=== PATIENT | female | born 1950 | race Caucasian/White ===

== ENCOUNTER 2017-06-07 08:09 | Outpatient (CLI) | payer OTHER, MEDICARE ==
[2017-06-07 11:02] LABS: Hematocrit 42.8 % (36.0-47.0); Mean Platelet Volume 7.8 fL (7.4-10.4); Red Blood Cell (RBC) Count 4.21 mill/uL (4.20-5.40); White Blood Cell (WBC) Count 7.7 thou/uL (4.8-10.8)
[2017-06-07 11:03] LABS: Prothrombin Time 12.2 SEC (12.0-14.7)
[2017-06-07 11:15] LABS: Anion Gap 11 mmol/L (10-20); BUN (Urea Nitrogen) 8 mg/dL (9.8-20.1); Calc. Creatinine Clearance 0 mL/min (70-130); Calcium 9.5 mg/dL (7.8-10.44); Carbon Dioxide 29 mmol/L (23-31); Chloride 94 mmol/L (98-107); Estimated GFR-MDRD 84
[2017-06-07 11:30] LABS: Bilirubin Negative (Negative); Blood, Urine Negative (Negative); Glucose, Urine (Dipstick) Negative (Negative); Ketone, Urine Negative (Negative); Nitrite Negative (Negative); Protein, Urine (Dipstick) Negative (Neg-Trace); Urobilinogen 0.2 mg/dL (0.2-1.0)
[2017-06-07 11:34] LABS: Bacteria/HPF None Seen HPF (None Seen); Hyaline Casts/LPF 0-3 HYALINE CAST LPF (0-3 Hyaline); PTT 22.5 SEC (22.9-36.1); RBC/HPF 0-3 HPF (0-3); Squamous Epithelial None Seen HPF (0-3); WBC/HPF None Seen HPF (0-3)
== END 2017-06-07 08:10 | disposition home or self-care (01) ==
LOC: LABBT 08:09
PROVIDERS: ATTEND Orthopaedic Surgery
DX: Z01.818 Encounter for other preprocedural examination (principal); M17.11 Unilateral primary osteoarthritis, right knee; Z88.8 Allergy status to other drugs, medicaments and biological substances
CPT/HCPCS: 80048; 81001; 85027; 85610; 85730; 86850; 86900; 86901; 87081; 87086; 93005; 93010

== ENCOUNTER 2017-06-07 08:45 | Inpatient (IN) | payer OTHER, MEDICARE ==
[2017-06-07 08:30] VITALS: BMI 26.2
--- NOTE | 2017-06-07 14:16 | HP ---
HISTORY OF PRESENT ILLNESS: The patient is a 67-year-old female who has post-traumatic degenerative arthritis of both knees. She had right knee arthroscopy approximately 5 years ago by me and a left k nee arthroscopy done by Dr. Pretty in [place] approximately 6 years ago. She initially has done we ll, but over the past several years, has noticed progressive degenerative arthritis and over the past several months she started having increasing pain in the right knee, which is persisted despite rest , restriction of activities, anti-inflammatory medications and cortisone injection. The pain is now interfering with day-to-day activities including walking, getting dressed and using stairs. PAST MEDICAL AND SURGICAL HISTORY: The patient had a cervical fusion performed several months ago an d it appears to be gradually healing. She has history of a high cholesterol, depression, acid reflux and asthma. CURRENT MEDICATIONS: Include Boniva, Advair, propranolol, duloxetine, lorazepam, hydrochlorothiazide , multivitamins, hydrocodone, aspirin, calcium and multivitamins. ALLERGIES: She has a possible allergy to EPINEPHRINE. FAMILY HISTORY: Otherwise unremarkable. SOCIAL HISTORY: Otherwise unremarkable. REVIEW OF SYSTEMS: Otherwise unremarkable. PHYSICAL EXAMINATION: GENERAL: Reveals a healthy, thin female. HEENT: Unremarkable. NECK: Supple. CHEST: Clear. HEART: Regular rate and rhythm. ABDOMEN: Soft and nontender. PELVIC: Deferred. RECTAL: Deferred. BREAST: Deferred. EXTREMITIES: Pertinent findings of the right knee, there is trace effusion. There is mild valgus. Range of motion is 0 to 125 degrees. There is 1-2+ valgus laxity at 30 degrees of flexion and the kn ee is stable in extension. Neurovascular exam is intact. There is tenderness and crepitus over the lateral joint line. Slight antalgic gait. There is no pain with range of motion of the right hip. LABORATORY AND X-RAY FINDINGS: X-rays of both knees reveal bone on bone collapse laterally of both k nees. The right knee has progressed from previous x-rays of the left knee is about the same. IMPRESSION: Post-traumatic degenerative arthritis, both knees, right symptomatic more than left. PLAN: Right total knee replacement. She may eventually require a staged left total knee replacement . The nature of the surgery, length of recovery and potential complications such as infection, loss of motion, incomplete relief, delayed wound healing, neurovascular injury, thromboembolic phenomenon, possible transfusion and need for revision have been discussed in detail.
== END 2017-06-13 08:30 | disposition home or self-care (01) | DRG 554 ==
LOC: SJJU 06-13 05:30
PROVIDERS: ADMIT Orthopaedic Surgery; ATTEND Orthopaedic Surgery
DX: M17.2 Bilateral post-traumatic osteoarthritis of knee (principal); L97.119 Non-pressure chronic ulcer of right thigh with unspecified severity; Z53.8 Procedure and treatment not carried out for other reasons; F17.210 Nicotine dependence, cigarettes, uncomplicated

== ENCOUNTER 2018-02-09 08:30 | Inpatient (IN) | payer BC, MEDICARE ==
[2018-02-09 09:17] VITALS: BMI 25.7
--- NOTE | 2018-02-16 13:45 | HP ---
HISTORY OF PRESENT ILLNESS: The patient is a 67-year-old female with a long history of progressive t raumatic degenerative arthritis of both knees. She has had previous arthroscopic meniscectomy of bot h knees in the past. She subsequently has developed progressive degenerative changes of both knees, left symptomatic more than right, unresponsive to rest, restriction of activities, anti-inflammatory medications, several injections and use of hydrocodone. The pain is now interfering with day-to-day activities including walking, getting dressed and sleeping. PAST MEDICAL HISTORY: The patient is otherwise in good health. She does have some chronic pain and is [place] Dr. Choudh[place] near [place] is treated with hydrocodone. She also has a history of de pression, asthma, high cholesterol, osteoporosis. CURRENT MEDICATIONS: Include Boniva, Advair, lorazepam, hydrochlorothiazide, multivitamins, hydrocod one, aspirin, albuterol. ALLERGIES: She is allergic to EPINEPHRINE. FAMILY HISTORY/SOCIAL HISTORY/REVIEW OF SYSTEMS: Otherwise unremarkable. PHYSICAL EXAMINATION: GENERAL: Reveals a healthy, thin female. HEENT: Unremarkable. NECK: Supple. CHEST: Clear. HEART: Regular rate and rhythm. ABDOMEN: Soft, nontender. PELVIC/RECTAL/BREAST: Exams are deferred. EXTREMITIES: Pertinent findings related to her knees. There is mild valgus deformity bilaterally. There is tenderness and crepitus over the lateral joint line, left greater than right. No definite e ffusion. Range of motion is 0-135 degrees bilaterally. There is no instability. Neurovascular exam is intact. No pain with range of motion of either hip. Pulses are 2+. Neurovascular exam is intac t. X-RAY FINDINGS: X-rays of both knees reveal bone on bone collapse laterally bilaterally, left slight ly greater than right. IMPRESSION: Post-traumatic degenerative arthritis, both knees, left symptomatic more than right. PLAN: Left total knee replacement. The nature of the surgery, length of recovery, and potential com plications such as infection, loss of motion, incomplete relief, delayed wound healing, neurovascular injury, thromboembolic phenomena, possible transfusion, and need for revision have been discussed in detail. She may ultimately require a staged right total knee replacement.
[2018-02-20] MEDS ORDERED: Ropivacaine 0.2% HCl/PF (40 MG/20 ML VIAL) ONE (06:56)
[2018-02-20] MEDS ORDERED: Ropivacaine 0.5% HCl/PF (150 MG/30 ML VIAL) ONE (06:56)
[2018-02-20] MEDS ORDERED: Tranexamic Acid 1,000 MG/10 ML VIAL ONE ×2 (07:10→12:01)
[2018-02-20] MEDS ORDERED: Sodium Chloride 0.9% 100 ML ONE (07:10)
[2018-02-20] MEDS ORDERED: CEFAZOLIN/Water 2 GM/20 ML SYRINGE ONE (07:10)
[2018-02-20] MEDS ORDERED: Midazolam HCl 2 mg/2 ml Vial ONE ×3 (07:43→09:26)
[2018-02-20] MEDS ORDERED: Fentanyl 100 MCG/2 ML VIAL ONE ×3 (07:43→12:16)
[2018-02-20] MEDS ORDERED: traMADol HCl 50 MG TAB PO PRN ×2 (08:40→13:28)
[2018-02-20] MEDS ORDERED: Zolpidem Tartrate 5 MG TAB PO PRN ×2 (08:40→13:28)
[2018-02-20] MEDS ORDERED: Fentanyl 100 MCG/2 ML VIAL IV PRN (08:42)
[2018-02-20] MEDS ORDERED: PROPOFOL 200 MG/20 ML VIAL ONE (09:25)
[2018-02-20] MEDS ORDERED: Ondansetron PF 4 MG/2 ML Vial ONE (09:25)
[2018-02-20] MEDS ORDERED: Bupivacaine/Epinephrine 0.25% 30 ML VIAL ONE (10:01)
[2018-02-20] MEDS ORDERED: Tranexamic Acid 1,000 MG in Sodium Chloride 0.9% 100 ML IVPB SCH ×2 (12:15→13:28)
--- NOTE | 2018-02-20 12:53 | OP ---
DATE OF PROCEDURE: 02/20/2018 PREOPERATIVE DIAGNOSIS: End-stage tricompartmental osteoarthritis of left knee with degenerative gen u valgum. POSTOPERATIVE DIAGNOSIS: End-stage tricompartmental osteoarthritis of left knee with degenerative ge nu valgum. OPERATIVE PROCEDURE: Cemented cruciate-sparing computer-assisted navigated left total knee arthropla sty. SURGEON: Bayron Cox M.D. MARKET RESEARCH INTERVIEWER: Timi Ram PA-C. ANESTHESIA: General via laryngeal mask airway augmented with indwelling anterior adductor canal bloc k with a single shot sciatic block. COMPONENTS USED: [employer] Triathlon primary cemented cruciate-sparing size 3 femoral comp onent with a primary cemented universal tibial size 2 baseplate with a 9 mm polyethylene fixed bearin g insert, A29 patellar button. FINDINGS: End-stage severe degenerative tricompartmental disease, bone on bone arthrosis, periarticu lar osteophyte formation, large serous effusion, hypertrophic synovium, and changes consistent with d egenerative genu valgum. TOURNIQUET TIME: 67 minutes at 250 mmHg. INPUT: 500 mL crystalloid. OUTPUT: 200 mL of clear yellow urine. ESTIMATED BLOOD LOSS: Less than 100 mL. DRAINS: None. SPECIMENS: None. COMPLICATIONS: None. COUNTS: Correct. INDICATIONS FOR SURGERY: Malgorzata is a 67-year-old white female who has had progressive left knee pa in amplified with standing and walking for the last 5-7 years. She has failed conservative managemen t and elected to proceed with total knee arthroplasty as a definitive treatment of her pain. PROCEDURE IN DETAIL: After informed consent was obtained in the preoperative holding area. The mariann ent was taken to the operative suite where general anesthesia was induced. Once adequate level of ge neral anesthesia was obtained, the patient was positioned and a well-padded tourniquet was placed sanjana und the left proximal thigh. The left lower extremity was then prepped and draped in the usual steri le fashion. Prior to exsanguination, a time out was called and all members of the surgical team agre ed upon site, surgeon, and patient. The extremity was then exsanguinated and the tourniquet was rais ed. A midline longitudinal incision was then made directly over the patella extending two fingerbrea dths above the superior pole of the patella and two fingerbreadths inferior to the inferior patellar pole of the patella. Deeper subcutaneous layers were dissected sharply and local bleeding was contro lled with Bovie electrocautery. A quad tendon longitudinal split was then made sharply and a median parapatellar arthrotomy was carried out both sharp and with Bovie electrocautery, carried down to one fingerbreadth medial to the tibial tubercle. The knee was then placed into flexion and the patella was everted nicely, and a copious fat pad ectomy was performed allowing for greater exposure of the t ibia. The computer-assisted distal femoral fiducial was then placed and pinned firmly, and the dista l femoral cutting guide was pinned firmly into place. The oscillating saw was then used to remove th e appropriate amount of bone. The 4-in-1 cutting block was then placed on the distal femur and the o scillating saw was used to remove the appropriate amount of bone off of the anterior, posterior, and chamfer cuts. After completion of bone cuts, the anterior cruciate ligament was resected sharply and the posterior cruciate ligament retractor was placed and the tibia was subluxed for better exposure. Partial meniscectomies were carried out, and the tibial computer-assisted fiducial was pinned, and the cutting guide was placed. Oscillating saw was then used to remove the bone with Hohmann retracto rs used to take care and protect the collateral ligaments. After the tibial resection was performed, a laminar motorcoach operator was placed in between the freshened bone cuts. The knee placed at 90 degrees and further bilateral meniscectomies were carried out, and the curved osteotome and curettage was used t o remove any excess bone spurs in the posterior compartment. The trial femoral component, tibial bas eplate were placed with the appropriate polyethylene trial insert with an appropriate polyethylene sp acer and patellar button. The knee was taken through full range of motion with flexion and extension from 0-90 degrees and patellar broach squarely in the trochlea without any squinting or subluxation noted. The knee was also stable to varus and valgus stressing at 0, 15, 45, and 90 degrees of flexi on. The drawer was negative. All trial components were then removed and the keel punch was used to p rovide the appropriate defect in the tibia with a mallet. The freshened bone cuts were copiously irr igated with pulsatile lavage of about 1-1/2 liters to remove all excess debris. The freshened bone c uts were then dried and with suction and lap sponge. The knee was placed in flexion and retractors w ere placed to provide access to all bone cuts. Tobramycin impregnated methyl methacrylate cement was then placed on the freshened bone cuts and implants which were malleted firmly into place. Curettag e and Beaumont elevators were used to remove any excess bone cement. The knee was placed into full exte nsion and the patellar button was placed under compression, and the cement was allowed to cure. Once completed, the components were again taken through full range of motion and copious irrigation of th e knee was carried out with another liter of normal saline. All components were inspected fully with full range of motion and varus and valgus stressing. There was no laxity noted and full extension wa s observed clinically. Primary closure was accomplished with #2 interrupted Vicryl stitch of the art hrotomy defect. This was oversewn with a #2 running Quill barbed stitch. The subcutaneous layer was then closed with a running 0 barbed Monocryl stitch and skin closure accomplished with a running sub cuticular 3-0 Monocryl barbed Quill stitch and augmented with cement on the skin. Tourniquet was low ered. Good spontaneous return of distal pulses was noted clinically and a sterile dressing was appli ed to the incision. The procedure was terminated without any complications. The patient was awakene d in the operative suite and taken to the recovery room in stable condition.
--- NOTE | 2018-02-20 13:27 | RAD ---
LEFT KNEE TWO VIEWS: History: Post-operative exam. FINDINGS/IMPRESSION: Recent post-operative change including arthroplasty in good position and alignment. Soft tissue air i s present. POS: [facility]
[2018-02-20] MEDS ORDERED: Ondansetron PF 4 MG/2 ML Vial IVP PRN (13:28)
[2018-02-20] MEDS ORDERED: HYDROcodone/Acetaminophen 10/325 mg Tablet PO PRN ×2 (13:28)
[2018-02-20] MEDS ORDERED: Acetaminophen 325 MG TAB PO PRN (13:28)
[2018-02-20] MEDS ORDERED: Fentanyl 100 MCG/2 ML VIAL SLOW IVP PRN ×2 (13:28)
[2018-02-20] MEDS ORDERED: diphenhydrAMINE 25 MG CAP PO PRN (13:28)
[2018-02-20] MEDS ORDERED: Promethazine HCl 25 MG/ML VIAL SLOW IVP PRN (13:28)
[2018-02-20] MEDS ORDERED: PROVENTIL INHALER 6.7 G (200 INHALATIONS) INH PRN (13:45)
[2018-02-20] MEDS ORDERED: Ketorolac Tromethamine 30 MG/ML VIAL IVP SCH (14:00)
[2018-02-20] MEDS: Ketorolac Tromethamine 30 MG/ML VIAL IVP SCH ×2 (14:22→18:39)
[2018-02-20] MEDS: Sodium Chloride 0.9% 1,000 ML IV SCH (15:14)
[2018-02-20] MEDS: Mometasone/Formoterol 120 PUFF INHALER INH SCH (18:24)
[2018-02-20] MEDS: CEFAZOLIN/Water 2 GM/20 ML SYRINGE SLOW IVP SCH (18:41)
[2018-02-20] MEDS ORDERED: Vancomycin HCl 1 GM in Premix Bag 1 BAG IVPB SCH (19:30)
[2018-02-20] MEDS: Hydrochlorothiazide 25 MG TAB PO SCH (20:07)
[2018-02-20] MEDS: Venlafaxine HCl XR 150 MG CAP PO SCH (20:08)
[2018-02-20] MEDS: Propranolol 10 MG TAB PO SCH (20:09)
[2018-02-20] MEDS: Aspirin 81 mg Enteric Coated Tablet PO SCH (20:09)
[2018-02-20] MEDS: Ondansetron PF 4 MG/2 ML Vial IVP PRN (20:10)
[2018-02-20] MEDS: clonazePAM 1 MG TAB PO PRN (21:13)
[2018-02-21] MEDS: Ketorolac Tromethamine 30 MG/ML VIAL IVP SCH ×4 (00:14→18:15)
[2018-02-21] MEDS: Sodium Chloride 0.9% 1,000 ML IV SCH ×2 (00:16→09:50)
[2018-02-21] MEDS: CEFAZOLIN/Water 2 GM/20 ML SYRINGE SLOW IVP SCH (02:00)
[2018-02-21] MEDS: HYDROcodone/Acetaminophen 10/325 mg Tablet PO PRN ×4 (03:41→23:17)
[2018-02-21 05:50] LABS: Hemoglobin 11.5 g/dL (12.0-16.0); Mean Corpuscular HGB CONC 35.2 g/dL (32.0-36.0); Mean Corpuscular Hemoglobin 34.9 pg (27.0-31.0); Mean Corpuscular Volume 99.1 fL (78.0-98.0); Mean Platelet Volume 7.6 fL (7.4-10.4); Platelet Count 211 thou/uL (130-400); RBC Distribution Width 11.1 % (11.5-14.5); Red Blood Cell (RBC) Count 3.29 mill/uL (4.20-5.40); White Blood Cell (WBC) Count 9.8 thou/uL (4.8-10.8)
[2018-02-21] MEDS: traMADol HCl 50 MG TAB PO PRN (07:26)
--- NOTE | 2018-02-21 08:12 | CON ---
PRIMARY CARE PROVIDER: Dr. Choudhury in [place], [place]. HISTORY OF PRESENT ILLNESS: She was admitted to the hospital by Dr. Cox. She underwent a left tot al knee replacement this morning. She is awake and alert. She has had no chest pain, shortness of b reath or cough. She has had no nausea or vomiting. She has had no fever, sweats or chills. She was able to participate in PT. She has had some left leg pain at the site of her surgery, but she was a ble to get up with a walker and participate. PAST MEDICAL HISTORY: Her chronic medical problems include gastroesophageal reflux disease, asthma, osteoporosis, irritable bowel syndrome, dyslipidemia, insomnia, anxiety, an depression. MEDICATIONS: Her home medicines, Dexilant 60 mg at bedtime, aspirin 81 mg a day, ziprasidone 80 mg p .o. at bedtime, albuterol HFA 2 puffs q.4 hours p.r.n., desvenlafaxine 100 mg at bedtime, benazepril/ hydrochlorothiazide 10/12.5 one tablet at bedtime, clonazepam 1 mg, she takes 30 minutes before her s leeping pill at night, Advair Diskus 250/50 one puff at bedtime, Lipitor 20 mg a day, propranolol 10 mg twice a day, Lunesta 2 mg at bedtime. ALLERGIES: MEPERIDINE drops her blood pressure, EPINEPHRINE makes her shake and makes her heart race . PAST SURGICAL HISTORY: Bilateral knee surgery in the past. SOCIAL HISTORY: , no tobacco in 35 years. Drinks an occasional beer. REVIEW OF SYSTEMS: General: No headaches, dizziness or fainting. Eyes: No double vision, blurred vision, flashing lights. Ear, Nose and Throat: No ear pain or drainage. No nasal bleeding. No tro uble swallowing. Cardiac: No chest pain, orthopnea or paroxysmal nocturnal dyspnea. Respiratory: No cough, wheezing or asthma. Gastrointestinal: No nausea, vomiting, abdominal pain, diarrhea or co nstipation. Genitourinary: No hematuria, dysuria or nocturia. Musculoskeletal: Legs occasionally swells. She had severe pain in her left knee prior to surgery with any ambulation. Psychiatric: In somnia, uses clonazepam plus a sleeping pill, Lunesta to sleep at night. Skin: No bruising, bleedin g or rash. Heme/Lymph: No tender or swollen lymph nodes in axilla, inguinal or cervical area. PHYSICAL EXAMINATION: GENERAL: She is an alert, pleasant, cooperative, oriented lady. VITAL SIGNS: Temperature 97.4, pulse 69, respirations 16, O2 sat 96, blood pressure 132/82. HEAD, EYES, EARS, NOSE AND THROAT: Reveal pupils equal, round, and reactive to light. Extraocular m ovements are intact. Sclerae white. Tympanic membranes clear. Nose clear. Throat is clear. NECK: Supple, without jugular venous distention, adenopathy or thyromegaly. CHEST: Clear to auscultation and percussion. HEART: Regular rate and rhythm. First and second heart sounds are clear. There are no appreciated murmurs or gallops. ABDOMEN: Soft, bowel sounds are normal. There is no hepatosplenomegaly, no mass, no rebound, no bru its. EXTREMITIES: No cyanosis, clubbing or edema. SKIN: She has an incision wrapped on her left knee. PULSES: Carotid, radial, femoral, and dorsalis pedis pulses intact and symmetric. HEME/LYMPH: No tender or swollen lymph nodes in axilla, inguinal or cervical area. NEUROLOGIC: Cranial nerves II-XII are intact. Moves all extremities. LABORATORY AND X-RAY FINDINGS: There is none for this visit. On 02/09/2018, CBC: Hemoglobin 15.0, white count 8.2, platelet count 314,000. INR 0.9. Chemistry: Sodium 130, potassium 4.1, BUN 8, cre atinine 0.62, blood sugar 79. Urine clear. EKG regular sinus rhythm, low voltage QRS, inverted T waves in the anterior leads. ADMITTING DIAGNOSES: Stable, post left total knee replacement, asthma, stable, gastroesophageal refl ux disease, irritable bowel syndrome, dyslipidemia. PLAN: Agree with current management. We will follow with you. Thank you for this consultation.
[2018-02-21] MEDS: Propranolol 10 MG TAB PO SCH ×2 (08:32→21:28)
[2018-02-21] MEDS: Calcium Carbonate + Vit D 1 TAB PO SCH (08:32)
[2018-02-21] MEDS: Aspirin 81 mg Enteric Coated Tablet PO SCH ×2 (08:32→21:25)
[2018-02-21] MEDS: Senokot S 8.6-50 MG TAB PO SCH ×2 (08:33→21:24)
[2018-02-21] MEDS: Atorvastatin Calcium 20 MG TAB PO SCH (08:33)
[2018-02-21] MEDS: Multivitamin W/ Minerals 1 TAB PO SCH (08:33)
[2018-02-21] MEDS: Ferrous Gluconate 324 MG TAB PO SCH ×2 (08:33→21:24)
[2018-02-21] MEDS: Ondansetron PF 4 MG/2 ML Vial IVP PRN (10:16)
[2018-02-21] MEDS: Ropivacaine HCl/PF 250 ML in Premix Bag 1 BAG NERVE BLCK SCH (13:10)
--- NOTE | 2018-02-21 15:09 | PDOC.PN ---
- Subjective Encounter Start Date: 02/21/18 Encounter Start Time: 15:07 Subjective: minimal discomfort, doing well with PT - Objective MAR Reviewed: Yes Vital Signs & Weight: Vital Signs (12 hours) Temp Pulse Resp BP BP Pulse Ox 02/21/18 12:00 98.3 F 81 18 158/82 H 96 02/21/18 08:00 98.2 F 101 H 18 107/71 96 02/21/18 07:24 97.9 F 79 20 95 02/21/18 03:38 97.9 F 79 20 100/68 95 Weight Admit Weight 150 lb Weight 150 lb I&O: 02/20/18 02/21/18 02/22/18 06:59 06:59 06:59 Intake Total 3300 Output Total 2400 Balance 900 Result Diagrams: 02/21/18 04:45 Phys Exam - Physical Examination Neck: no JVD Respiratory: clear to auscultation bilateral Cardiovascular: RRR, no significant murmur Gastrointestinal: soft, positive bowel sounds Musculoskeletal: no edema Dx/Plan (1) Asthma Code(s): J45.909 - UNSPECIFIED ASTHMA, UNCOMPLICATED Status: Acute (2) Dyslipidemia Code(s): E78.5 - HYPERLIPIDEMIA, UNSPECIFIED Status: Acute (3) GERD (gastroesophageal reflux disease) Code(s): K21.9 - GASTRO-ESOPHAGEAL REFLUX DISEASE WITHOUT ESOPHAGITIS Status: Acute (4) Osteoporosis Code(s): M81.0 - AGE-RELATED OSTEOPOROSIS W/O CURRENT PATHOLOGICAL FRACTURE Status: Acute - Plan cont current plan of care, PT/OT stable, excellet progress with PT -: cont current meds * .
[2018-02-21] MEDS: Mometasone/Formoterol 120 PUFF INHALER INH SCH (18:49)
[2018-02-21] MEDS: Venlafaxine HCl XR 150 MG CAP PO SCH (21:25)
[2018-02-21] MEDS: Hydrochlorothiazide 25 MG TAB PO SCH (21:27)
[2018-02-21] MEDS: clonazePAM 1 MG TAB PO PRN (21:34)
[2018-02-22] MEDS: Ketorolac Tromethamine 30 MG/ML VIAL IVP SCH ×2 (00:22→06:54)
[2018-02-22] MEDS: Sodium Chloride 0.9% 1,000 ML IV SCH ×3 (00:55→15:33)
--- NOTE | 2018-02-22 05:14 | PDOC.EVN ---
Event Note - Event Note Event Note: Event noted RN called - BP in 70s earlier - now better. -Will hold ACEI and diuretic. Add holding parameters to Propranolol.
[2018-02-22] MEDS: traMADol HCl 50 MG TAB PO PRN ×2 (07:00→15:44)
[2018-02-22 07:08] LABS: #Basophils 0.1 thou/uL (0.0-0.2); #Eosinphils 0.2 thou/uL (0.0-0.7); #Lymphocytes 1.6 thou/uL (1.20-3.40); #Monocytes 1.1 thou/uL (0.11-0.59); #Neutrophils 5.8 thou/uL (1.40-6.50); %Basophils 0.6 % (0.0-1.0); %Eosinophils 2.5 % (0.0-10.0); %Lymphocytes 17.9 % (21.0-51.0); %Monocytes 12.4 % (0.0-10.0); %Neutrophils 66.6 % (42.0-75.0); Hemoglobin 10.5 g/dL (12.0-16.0); Mean Corpuscular HGB CONC 34.6 g/dL (32.0-36.0); Mean Corpuscular Hemoglobin 34.7 pg (27.0-31.0); Mean Platelet Volume 7.1 fL (7.4-10.4); Platelet Count 156 thou/uL (130-400); Red Blood Cell (RBC) Count 3.03 mill/uL (4.20-5.40); White Blood Cell (WBC) Count 8.7 thou/uL (4.8-10.8)
[2018-02-22 07:31] LABS: Anion Gap 10 mmol/L (10-20); BUN (Urea Nitrogen) 6 mg/dL (9.8-20.1); Calc. Creatinine Clearance 97 mL/min (70-130); Calcium 8.9 mg/dL (7.8-10.44); Carbon Dioxide 30 mmol/L (23-31); Chloride 93 mmol/L (98-107); Estimated GFR-MDRD Greater than 90; Glucose 102 mg/dL (80-115); Magnesium 1.8 mg/dL (1.6-2.6); Phosphorus 3.5 mg/dL (2.3-4.7); Potassium 3.5 mmol/L (3.5-5.1); Sodium 129 mmol/L (136-145)
[2018-02-22] MEDS: HYDROcodone/Acetaminophen 10/325 mg Tablet PO PRN ×3 (09:12→20:29)
[2018-02-22] MEDS: Propranolol 10 MG TAB PO SCH ×2 (10:04→20:28)
[2018-02-22] MEDS: Atorvastatin Calcium 20 MG TAB PO SCH (10:04)
[2018-02-22] MEDS: Multivitamin W/ Minerals 1 TAB PO SCH (10:04)
[2018-02-22] MEDS: Aspirin 81 mg Enteric Coated Tablet PO SCH ×2 (10:04→20:27)
[2018-02-22] MEDS: Senokot S 8.6-50 MG TAB PO SCH ×2 (10:05→20:27)
[2018-02-22] MEDS: Ferrous Gluconate 324 MG TAB PO SCH ×2 (10:05→20:27)
[2018-02-22] MEDS: Calcium Carbonate + Vit D 1 TAB PO SCH (10:05)
[2018-02-22] MEDS: Ondansetron PF 4 MG/2 ML Vial IVP PRN (11:59)
--- NOTE | 2018-02-22 14:12 | PDOC.PN ---
- Subjective Encounter Start Date: 02/22/18 Encounter Start Time: 14:10 Subjective: a lttle liteheaded - Objective MAR Reviewed: Yes Vital Signs & Weight: Vital Signs (12 hours) Temp Pulse Resp BP Pulse Ox 02/22/18 12:00 97.5 F L 73 16 134/83 97 02/22/18 07:46 98.4 F 78 16 124/78 94 L 02/22/18 04:00 92 L Weight Admit Weight 150 lb Weight 150 lb I&O: 02/21/18 02/22/18 02/23/18 06:59 06:59 06:59 Intake Total 3300 1220 90 Output Total 2400 Balance 900 1220 90 Result Diagrams: 02/22/18 06:51 02/22/18 06:51 Phys Exam - Physical Examination Neck: no JVD Respiratory: clear to auscultation bilateral Cardiovascular: RRR, no significant murmur Gastrointestinal: soft, positive bowel sounds Musculoskeletal: no edema Dx/Plan (1) Asthma Code(s): J45.909 - UNSPECIFIED ASTHMA, UNCOMPLICATED Status: Acute (2) Dyslipidemia Code(s): E78.5 - HYPERLIPIDEMIA, UNSPECIFIED Status: Acute (3) GERD (gastroesophageal reflux disease) Code(s): K21.9 - GASTRO-ESOPHAGEAL REFLUX DISEASE WITHOUT ESOPHAGITIS Status: Acute (4) Osteoporosis Code(s): M81.0 - AGE-RELATED OSTEOPOROSIS W/O CURRENT PATHOLOGICAL FRACTURE Status: Acute - Plan BP dropped last nite, now ok, Hg 10.5 today -: cont off benzapril, HCTZ -: monitor BP * .
[2018-02-22] MEDS: Promethazine HCl 25 MG/ML VIAL IM PRN (14:45)
[2018-02-22] MEDS: Ropivacaine HCl/PF 250 ML in Premix Bag 1 BAG NERVE BLCK SCH (15:34)
[2018-02-22] MEDS: Mometasone/Formoterol 120 PUFF INHALER INH SCH (18:51)
[2018-02-22] MEDS: Venlafaxine HCl XR 150 MG CAP PO SCH (20:26)
[2018-02-23] MEDS: Sodium Chloride 0.9% 1,000 ML IV SCH ×2 (02:29→12:53)
[2018-02-23] MEDS: HYDROcodone/Acetaminophen 10/325 mg Tablet PO PRN ×2 (06:29→11:59)
[2018-02-23] MEDS: Multivitamin W/ Minerals 1 TAB PO SCH (09:17)
[2018-02-23] MEDS: Senokot S 8.6-50 MG TAB PO SCH (09:17)
[2018-02-23] MEDS: traMADol HCl 50 MG TAB PO PRN (09:17)
[2018-02-23] MEDS: Aspirin 81 mg Enteric Coated Tablet PO SCH (09:17)
[2018-02-23] MEDS: Ferrous Gluconate 324 MG TAB PO SCH (09:17)
[2018-02-23] MEDS: Calcium Carbonate + Vit D 1 TAB PO SCH (09:17)
[2018-02-23] MEDS: Atorvastatin Calcium 20 MG TAB PO SCH (09:17)
[2018-02-23] MEDS: Propranolol 10 MG TAB PO SCH (09:19)
[2018-02-23] MEDS: Promethazine HCl 25 MG/ML VIAL IM PRN (12:04)
--- NOTE | 2018-02-23 13:25 | PDOC.PN ---
- Subjective Encounter Start Date: 02/23/18 Encounter Start Time: 13:24 Subjective: doing well, no fever, sob,etc - Objective Vital Signs & Weight: Vital Signs (12 hours) Temp Pulse Resp BP BP Pulse Ox 02/23/18 11:12 98.6 F 83 16 131/85 90 L 02/23/18 08:28 98.1 F 79 18 117/78 93 L 02/23/18 04:52 97.8 F 78 14 113/76 95 Weight Admit Weight 150 lb Weight 150 lb I&O: 02/22/18 02/23/18 02/24/18 06:59 06:59 06:59 Intake Total 1220 1230 Balance 1220 1230 Result Diagrams: 02/22/18 06:51 02/22/18 06:51 Phys Exam - Physical Examination Neck: no JVD Respiratory: clear to auscultation bilateral Cardiovascular: RRR, no significant murmur Gastrointestinal: soft, positive bowel sounds Musculoskeletal: no edema Dx/Plan (1) Asthma Code(s): J45.909 - UNSPECIFIED ASTHMA, UNCOMPLICATED Status: Acute Qualifiers: Asthma severity: mild Asthma persistence: intermittent Asthma complication type: uncomplicated Qualified Code(s): J45.20 - Mild intermittent asthma, uncomplicated (2) Dyslipidemia Code(s): E78.5 - HYPERLIPIDEMIA, UNSPECIFIED Status: Chronic (3) GERD (gastroesophageal reflux disease) Code(s): K21.9 - GASTRO-ESOPHAGEAL REFLUX DISEASE WITHOUT ESOPHAGITIS Status: Acute Qualifiers: Esophagitis presence: esophagitis presence not specified Qualified Code(s) : K21.9 - Gastro-esophageal reflux disease without esophagitis (4) Osteoporosis Code(s): M81.0 - AGE-RELATED OSTEOPOROSIS W/O CURRENT PATHOLOGICAL FRACTURE Status: Acute Qualifiers: Osteoporosis type: age-related Presence of current pathological fracture: unspecified Qualified Code(s): M81.0 - Age-related osteoporosis without current pathological fracture (5) HTN (hypertension) Code(s): I10 - ESSENTIAL (PRIMARY) HYPERTENSION Status: Acute Qualifiers: Hypertension type: essential hypertension Qualified Code(s): I10 - Essential (primary) hypertension - Plan good progress with PT -: BP stable -: cont current meds -: to rehab tomorrow * .
[2018-02-23 15:17] VITALS: BP 138/85; TEMP 98.1
--- NOTE | 2018-02-24 17:01 | DIS ---
DATE OF ADMISSION: 02/20/2018 DATE OF DISCHARGE: 02/23/2018 DISCHARGE DISPOSITION: Transfer to inpatient rehabilitation. ADMISSION DIAGNOSIS: End-stage tricompartmental osteoarthritis, left knee. DISCHARGE DIAGNOSIS: End-stage tricompartmental osteoarthritis, left knee. OPERATIVE PROCEDURE: Left total knee arthroplasty. CONSULTANTS: [facility] acute postop pain management, [facility] oscar mccabe. BRIEF CLINICAL HISTORY: Malgorzata is a 67-year-old white female, who was admitted to [facility] with the above elective procedure on date of admission without intra, teofilo, or post operative complications. Her hospital course was unremarkable with the exception of difficulty reach ing independence in activities of daily living. Therefore, inpatient rehabilitation was consulted. She was accepted. At the time of transfer, the patient is afebrile. She is ambulatory with assist o f one, tolerating regular diet, and voiding without difficulty. Her incision is clean and closed wit hout erythema. DISCHARGE MEDICATIONS: Please see medication reconciliation form. We will be happy to see the patient on an as needed basis between now and her next scheduled appointm ent in 3-4 weeks. CONDITION ON TRANSFER: Stable. PROGNOSIS: Good.
== END 2018-02-23 18:27 | DRG 470 ==
LOC: SJJU 02-20 06:17
PROVIDERS: ADMIT Orthopaedic Surgery; ATTEND Orthopaedic Surgery
PROC: 0SRD0J9 Replacement of Left Knee Joint with Synthetic Substitute, Cemented, Open Approach (ICD-10-PCS; principal; 2018-02-20)
PROC: 8E0YXBZ Computer Assisted Procedure of Lower Extremity (ICD-10-PCS; 2018-02-20)
DX: M17.2 Bilateral post-traumatic osteoarthritis of knee (principal); T14.90XS Injury, unspecified, sequela; G89.29 Other chronic pain; F32.9 Major depressive disorder, single episode, unspecified; J45.909 Unspecified asthma, uncomplicated; M81.0 Age-related osteoporosis without current pathological fracture; M21.062 Valgus deformity, not elsewhere classified, left knee; K21.9 Gastro-esophageal reflux disease without esophagitis; K58.9 Irritable bowel syndrome, unspecified; E78.5 Hyperlipidemia, unspecified; G47.00 Insomnia, unspecified; F41.9 Anxiety disorder, unspecified; I10 Essential (primary) hypertension; Z79.82 Long term (current) use of aspirin
CPT/HCPCS: 36415; 80048; 83735; 84100; 85025; 85027; C1713; C1776; G8978-GP-CK; G8979-GP-CI; G8987-GO-CK; G8988-GO-CI; J1885; J2250; J2405; J2550; J2704; J2795; J3010; J3370; J7050

== ENCOUNTER 2018-02-09 08:56 | Outpatient (CLI) | payer BC ==
[2018-02-09 10:45] LABS: #Basophils 0.1 thou/uL (0.0-0.2); #Eosinphils 0.3 thou/uL (0.0-0.7); #Lymphocytes 2.4 thou/uL (1.20-3.40); #Monocytes 0.7 thou/uL (0.11-0.59); #Neutrophils 4.7 thou/uL (1.40-6.50); %Basophils 1.2 % (0.0-1.0); %Eosinophils 3.7 % (0.0-10.0); %Monocytes 8.6 % (0.0-10.0); %Neutrophils 57.6 % (42.0-75.0); Mean Corpuscular HGB CONC 33.2 g/dL (32.0-36.0); Mean Corpuscular Hemoglobin 32.8 pg (27.0-31.0); Mean Platelet Volume 6.7 fL (7.4-10.4); Platelet Count 314 thou/uL (130-400); Red Blood Cell (RBC) Count 4.56 mill/uL (4.20-5.40); White Blood Cell (WBC) Count 8.2 thou/uL (4.8-10.8)
[2018-02-09 10:51] LABS: Bilirubin Negative (Negative); Blood, Urine Negative (Negative); Clarity CLEAR (Clear); Glucose, Urine (Dipstick) Negative (Negative); INR-International Normal Ratio 0.9; Leukocyte Negative (Negative); Nitrite Negative (Negative); Protein, Urine (Dipstick) Negative (Neg-Trace); Prothrombin Time 12.1 SEC (12.0-14.7); Specific Gravity, Urine 1.006 (1.002-1.036); Urobilinogen 0.2 mg/dL (0.2-1.0)
[2018-02-09 10:55] LABS: Bacteria/HPF None Seen HPF (None Seen); Hyaline Casts/LPF 0-3 HYALINE CAST LPF (0-3 Hyaline); RBC/HPF 0-3 HPF (0-3); Squamous Epithelial None Seen HPF (0-3); WBC/HPF 0-3 HPF (0-3)
[2018-02-09 11:07] LABS: Anion Gap 12 mmol/L (10-20); BUN (Urea Nitrogen) 8 mg/dL (9.8-20.1); Calc. Creatinine Clearance 0 mL/min (70-130); Calcium 9.5 mg/dL (7.8-10.44); Carbon Dioxide 25 mmol/L (23-31); Chloride 97 mmol/L (98-107); Estimated GFR-MDRD Greater than 90; Glucose 79 mg/dL (80-115); Potassium 4.1 mmol/L (3.5-5.1); Sodium 130 mmol/L (136-145)
== END 2018-02-09 08:57 | disposition home or self-care (01) ==
LOC: LABBT 08:56
PROVIDERS: ATTEND Orthopaedic Surgery
DX: Z01.818 Encounter for other preprocedural examination (principal); M17.32 Unilateral post-traumatic osteoarthritis, left knee
CPT/HCPCS: 80048; 81001; 85025; 85610; 87081; 87086; 93005; 93010

== ENCOUNTER 2018-02-15 10:46 | Outpatient (CLI) | payer BC | END 2018-02-15 10:47 | disposition home or self-care (01) | LOC: LABBT 10:46 | PROVIDERS: ATTEND Orthopaedic Surgery | DX: Z01.818 Encounter for other preprocedural examination (principal); M17.32 Unilateral post-traumatic osteoarthritis, left knee | CPT/HCPCS: 86850; 86900; 86901 ==

== ENCOUNTER 2018-12-27 10:02 | Emergency (ER) | payer BC, MEDICARE ==
--- NOTE | 2018-12-27 12:55 | RAD ---
XR Chest Pa Lat STANDARD HISTORY: Chest pain COMPARISON: 01/27/2009 FINDINGS: The heart size is normal. The lungs are well expanded without focal areas of consolidation, pneumothorax or large pleural effusions. There is blunting of the left lateral costophrenic angle, not seen in the previous study, likely scarring. IMPRESSION: No radiographic evidence of acute cardiopulmonary process.
[2018-12-27 13:03] LABS: #Eosinphils 0.2 thou/uL (0.0-0.7); #Lymphocytes 1.8 thou/uL (1.20-3.40); #Monocytes 0.5 thou/uL (0.11-0.59); %Basophils 0.5 % (0.0-1.0); %Eosinophils 2.2 % (0.0-10.0); %Lymphocytes 21.1 % (21.0-51.0); %Monocytes 5.7 % (0.0-10.0); %Neutrophils 70.5 % (42.0-75.0); Hemoglobin 13.2 g/dL (12.0-16.0); Mean Corpuscular HGB CONC 34.2 g/dL (32.0-36.0); Mean Corpuscular Hemoglobin 34.7 pg (27.0-31.0); Mean Platelet Volume 8.3 fL (7.4-10.4); Platelet Count 187 thou/uL (130-400); Red Blood Cell (RBC) Count 3.81 mill/uL (4.20-5.40); White Blood Cell (WBC) Count 8.5 thou/uL (4.8-10.8)
[2018-12-27 13:15] LABS: Bilirubin Negative (Negative); Blood, Urine Negative (Negative); Clarity CLEAR (Clear); Glucose, Urine (Dipstick) Negative (Negative); Leukocyte Moderate (Negative); Nitrite Negative (Negative); Protein, Urine (Dipstick) Negative (Neg-Trace); Specific Gravity, Urine 1.007 (1.002-1.036); Urobilinogen 0.2 mg/dL (0.2-1.0); pH, Urine 6.5 (5.0-9.0)
[2018-12-27 13:21] LABS: ALT (SGPT) 16 U/L (8-55); AST (SGOT) 18 U/L (5-34); Albumin 4.4 g/dL (3.4-4.8); Alkaline Phosphatase 81 U/L (40-150); Anion Gap 15 mmol/L (10-20); BUN (Urea Nitrogen) 6 mg/dL (9.8-20.1); Bilirubin, Total 1.2 mg/dL (0.2-1.2); Calc. Creatinine Clearance 0 mL/min (70-130); Calcium 9.5 mg/dL (7.8-10.44); Carbon Dioxide 25 mmol/L (23-31); Chloride 105 mmol/L (98-107); Estimated GFR-MDRD Greater than 90; Globulin 1.8 g/dL (2.4-3.5); Glucose 77 mg/dL (80-115); Lipase 6 U/L (8-78); Potassium 4.1 mmol/L (3.5-5.1); Protein, Total 6.2 g/dL (6.0-8.3); Sodium 141 mmol/L (136-145)
[2018-12-27 13:32] LABS: Bacteria/HPF None Seen HPF (None Seen); Hyaline Casts/LPF 0-3 HYALINE CAST LPF (0-3 Hyaline); RBC/HPF 0-3 HPF (0-3); Squamous Epithelial None Seen HPF (0-3); WBC/HPF 0-3 HPF (0-3)
[2018-12-27] MEDS ORDERED: Ketorolac Tromethamine 30 MG/ML VIAL ONE (14:37)
== END 2018-12-27 14:53 | disposition home or self-care (01) ==
LOC: ERS 10:02
DX: S39.012A Strain of muscle, fascia and tendon of lower back, initial encounter (principal); E78.2 Mixed hyperlipidemia; I10 Essential (primary) hypertension; J45.909 Unspecified asthma, uncomplicated; F32.9 Major depressive disorder, single episode, unspecified; Z79.899 Other long term (current) drug therapy; X58.XXXA Exposure to other specified factors, initial encounter
CPT/HCPCS: 36415; 71046; 80053; 81003; 81015; 83690; 84484; 85025; 93005; 96372; J1885

== ENCOUNTER 2020-01-22 10:00 | Outpatient (CLI) | payer MEDICARE, OTHER ==
--- NOTE | 2020-01-22 15:29 | NM ---
NUCLEAR MEDICINE BRAIN IMAGING: HISTORY: Tremor, unspecified TECHNIQUE: A Luz Maria scan with axial tomographic images of the brain was obtained 3 hours following the intravenous administration of 4.4mCi I-123 Ioflupane. The patient was pretreated with 130 mg of oral potassium iodide 1 hour prior to the injection. FINDINGS: There is normal symmetric uptake in the striata bilaterally, demonstrating symmetric, crescent-shaped focal regions of activity mirrored about the median plane. IMPRESSION: Normal exam.
== END 2020-01-22 10:01 | disposition home or self-care (01) ==
LOC: NM 10:00
PROVIDERS: ATTEND Psychiatry & Neurology Neurology
DX: R25.1 Tremor, unspecified (principal); R25.9 Unspecified abnormal involuntary movements
CPT/HCPCS: 78803; A9584